=== PATIENT | female | born 1990 | race Caucasian/White ===

== ENCOUNTER → 2018-02-14 | Outpatient (CLI) | payer OTHER ==
--- NOTE | 2018-02-14 19:36 | RADIOLOGY IMAGING REPORT ---
FACILITY: [facility] [place] PATIENT NAME: Enid Gaffney : 1990 MR: [id number] V: [id number] EXAM DATE: ORDERING PHYSICIAN: ASHLEIGH MOONEY TECHNOLOGIST: Location: [facility] - [place], [place] Patient: Enid Gaffney : 1990 Visit/Account:[id number] Date of Sevice: 02/14/2018 CT Head without contrast Indication: Headache. Head trauma last week. Comparison: None available Technique: Axial CT images were obtained through the brain from the skull base to the vertex without administration of IV contrast. Reformatted coronal and sagittal images were also obtained. One of the following dose optimization techniques was utilized in the performance of this exam: autom ated exposure control; adjustment of the mA and/or kV according to the patient's size; or use of an i terative reconstruction technique. Specific details can be referenced in the facility's radiology CT exam operational policy. Findings: No evidence of mass, mass effect, or midline shift. No acute intracranial hemorrhage or acute territorial infarction. No extra-axial fluid collection or hydrocephalus. No abnormal density. Burkett/white matter differentiat ion appears normal. Bony structures show no fractures or lesions. The visualized paranasal sinuses and mastoid air cells are clear. IMPRESSION: 1. Negative unenhanced CT of the head. Report Dictated By: Brad Abraham at 02/14/2018 7:29 PM Report E-Signed By: Brad Abraham at 02/14/2018 7:33 PM WSN:[id number]
== END ==
LOC: CT 18:38
PROVIDERS: ATTEND Physician Assistant Medical
DX: R51 Headache (principal); S09.90XA Unspecified injury of head, initial encounter
CPT/HCPCS: 70450